=== PATIENT | male | born 1965 | race Caucasian/White ===

== ENCOUNTER 2021-07-04 09:05 | Inpatient (IN) | payer OTHER ==
[2021-07-04] MEDS: PRENATAL VITAMINS W/ FOLIC ACID TABLET (FP) PO SCH (10:28)
[2021-07-04] MEDS ORDERED: BENZOCAINE/MENTHOL (CHLORASEPTIC ) LOZENGE MM PRN (10:42)
[2021-07-04] MEDS ORDERED: METHOCARBAMOL 500 MG TABLET PO PRN (10:42)
[2021-07-04] MEDS ORDERED: ONDANSETRON *ODT* 4 MG TABLET SL PRN (10:42)
[2021-07-04] MEDS ORDERED: MAGNESIUM HYDROX 2400MG/30ML ORAL SUSPENSION 30 ML CUP PO PRN (10:42)
[2021-07-04] MEDS ORDERED: BISMUTH SUBSALICYLATE 262 MG/15 ML BTL PO PRN (10:42)
[2021-07-04] MEDS ORDERED: IBUPROFEN 400 MG TABLET (FP) PO PRN (10:42)
[2021-07-04] MEDS ORDERED: DICYCLOMINE HCL 10 MG CAPSULE PO PRN (10:42)
[2021-07-04] MEDS ORDERED: chlordiazePOXIDE HCL 25 MG CAPSULE PO PRN (10:42)
[2021-07-04] MEDS ORDERED: MAGNESIUM CITRATE 300 ML BOTTLE PO PRN (10:42)
[2021-07-04] MEDS ORDERED: NICOTINE 10 MG CARTRIDGE (INHALER) IH PRN (10:42)
[2021-07-04] MEDS ORDERED: LOPERAMIDE HCL 2 MG CAPSULE PO PRN (10:42)
[2021-07-04] MEDS ORDERED: MAG HYDROX/AL HYDROX/SIMETH 30 ML UNIT-DOSE CUP PO PRN (10:42)
[2021-07-04] MEDS ORDERED: ACETAMINOPHEN 325 MG TABLET (FP) PO PRN ×2 (10:42)
[2021-07-04 11:04] VITALS: BMI 20.5
[2021-07-04] MEDS ORDERED: PERMETHRIN 5% TOPICAL CREAM 60 GM TUBE ONE (12:24)
[2021-07-04] MEDS ORDERED: PERMETHRIN (NIX CREAM SCALP RINSE) 59 ML 1% BOTTLE TP SCH (12:30)
[2021-07-04] MEDS ORDERED: PERMETHRIN (NIX CREAM SCALP RINSE) 59 ML 1% BOTTLE TP ONE (12:30)
[2021-07-04] MEDS ORDERED: PERMETHRIN 5% TOPICAL CREAM 60 GM TUBE TP ONE (12:49)
[2021-07-04] MEDS: NICOTINE 21 MG/24 HOURS TOPICAL PATCH TD SCH (14:28)
[2021-07-04] MEDS ORDERED: chlordiazePOXIDE HCL 25 MG CAPSULE ONE (15:47)
[2021-07-04] MEDS: chlordiazePOXIDE HCL 25 MG CAPSULE PO SCH (16:01)
[2021-07-04] MEDS: hydrOXYzine PAMOATE 25 MG CAPSULE (FP) PO SCH (16:02)
[2021-07-04] MEDS ORDERED: INSULIN SLIDING SCALE (NOVOLOG) 1 VIAL SQ SCH (16:30)
[2021-07-04] MEDS ORDERED: QUEtiapine FUMARATE 25 MG TABLET PO SCH (22:00)
[2021-07-04] MEDS ORDERED: BENZTROPINE MESYLATE 1 MG TABLET PO SCH (22:00)
[2021-07-05] MEDS: chlordiazePOXIDE HCL 25 MG CAPSULE PO SCH ×6 (06:00→22:24)
[2021-07-05] MEDS: hydrOXYzine PAMOATE 25 MG CAPSULE (FP) PO SCH ×5 (07:11→22:26)
[2021-07-05] MEDS ORDERED: methaDONE HCL 10 MG TABLET PO SCH (11:30)
[2021-07-05] MEDS ORDERED: methaDONE HCL 10 MG TABLET ONE (11:56)
[2021-07-05] MEDS ORDERED: methaDONE HCL 40 MG DISPERSABLE TABLET ONE (11:59)
[2021-07-05] MEDS: PRENATAL VITAMINS W/ FOLIC ACID TABLET (FP) PO SCH (12:05)
[2021-07-05] MEDS: NICOTINE 21 MG/24 HOURS TOPICAL PATCH TD SCH (12:06)
[2021-07-05] MEDS: THIAMINE HCL 100 MG TABLET (FP) PO SCH ×2 (12:11→22:24)
[2021-07-05] MEDS: MELATONIN 5 MG TABLETS PO SCH ×2 (12:11→22:26)
[2021-07-06] MEDS ORDERED: methaDONE HCL 10 MG TABLET ONE (03:55)
[2021-07-06] MEDS ORDERED: methaDONE HCL 40 MG DISPERSABLE TABLET ONE (03:56)
[2021-07-06] MEDS: chlordiazePOXIDE HCL 25 MG CAPSULE PO SCH ×4 (05:36→23:07)
[2021-07-06] MEDS: hydrOXYzine PAMOATE 25 MG CAPSULE (FP) PO SCH ×5 (07:43→23:05)
[2021-07-06] MEDS: NICOTINE 21 MG/24 HOURS TOPICAL PATCH TD SCH (11:54)
[2021-07-06] MEDS: PRENATAL VITAMINS W/ FOLIC ACID TABLET (FP) PO SCH (11:55)
[2021-07-06] MEDS: MELATONIN 5 MG TABLETS PO SCH (23:05)
[2021-07-06] MEDS: THIAMINE HCL 100 MG TABLET (FP) PO SCH (23:05)
[2021-07-07] MEDS ORDERED: chlordiazePOXIDE HCL 10 MG CAPSULE PO PRN
[2021-07-07] MEDS ORDERED: methaDONE HCL 10 MG TABLET ONE (04:36)
[2021-07-07] MEDS ORDERED: methaDONE HCL 40 MG DISPERSABLE TABLET ONE (04:36)
[2021-07-07] MEDS ORDERED: TRIMETHOBENZAMIDE HCL 200MG/2ML INJ IM ONE (06:14)
[2021-07-07] MEDS: chlordiazePOXIDE HCL 10 MG CAPSULE PO SCH ×4 (09:17→22:53)
[2021-07-07] MEDS: hydrOXYzine PAMOATE 25 MG CAPSULE (FP) PO SCH ×5 (09:19→22:53)
[2021-07-07] MEDS: PRENATAL VITAMINS W/ FOLIC ACID TABLET (FP) PO SCH (11:28)
[2021-07-07] MEDS: NICOTINE 21 MG/24 HOURS TOPICAL PATCH TD SCH (11:28)
[2021-07-07] MEDS: THIAMINE HCL 100 MG TABLET (FP) PO SCH (22:53)
[2021-07-07] MEDS: MELATONIN 5 MG TABLETS PO SCH (22:54)
[2021-07-07 23:11] LABS: SARS-CoV-2 NAA Not Detected (Not Detected)
[2021-07-08] MEDS ORDERED: methaDONE HCL 40 MG DISPERSABLE TABLET ONE (04:10)
[2021-07-08] MEDS ORDERED: methaDONE HCL 10 MG TABLET ONE (04:10)
[2021-07-08] MEDS: chlordiazePOXIDE HCL 10 MG CAPSULE PO SCH ×2 (06:30→18:19)
[2021-07-08] MEDS: hydrOXYzine PAMOATE 25 MG CAPSULE (FP) PO SCH ×5 (06:31→23:43)
[2021-07-08] MEDS: NICOTINE 21 MG/24 HOURS TOPICAL PATCH TD SCH (10:28)
[2021-07-08] MEDS: PRENATAL VITAMINS W/ FOLIC ACID TABLET (FP) PO SCH (10:29)
[2021-07-08 11:26] LABS: HEMATOCRIT 34.9 % (35.4-49); HEMOGLOBIN 11.2 GM/dL (11.7-16.9); MCH 30.5 pg (25.7-33.7); MCHC 32.2 g/dl (32.0-35.9); MEAN CELL VOLUME 94.7 fl (80-96); MEAN PLT VOLUME 6.7 fl (7.5-11.1); PLATELET COUNT 436 10^3/uL (134-434); RBC 3.69 M/mm3 (4.00-5.60); RDW 14.2 % (11.9-15.9); WHITE BLOOD COUNT 9.8 K/mm3 (4.0-10.0)
[2021-07-08 11:50] LABS: ALBUMIN 2.4 g/dl (3.4-5.0); BLOOD UREA NITROGEN 12.6 mg/dL (7-18); CALCIUM 8.8 mg/dL (8.5-10.1)
[2021-07-08 11:53] LABS: CREATININE 0.9 mg/dL (0.55-1.3)
[2021-07-08 11:55] LABS: BILIRUBIN,TOTAL 0.4 mg/dL (0.2-1); TOT PROT 7.8 g/dl (6.4-8.2)
[2021-07-08] MEDS: MELATONIN 5 MG TABLETS PO SCH (23:43)
[2021-07-08] MEDS: THIAMINE HCL 100 MG TABLET (FP) PO SCH (23:43)
[2021-07-09] MEDS ORDERED: methaDONE HCL 10 MG TABLET ONE (04:13)
[2021-07-09] MEDS ORDERED: methaDONE HCL 40 MG DISPERSABLE TABLET ONE (04:14)
[2021-07-09] MEDS ORDERED: chlordiazePOXIDE HCL 10 MG CAPSULE PO ONE (05:00)
[2021-07-09] MEDS: hydrOXYzine PAMOATE 25 MG CAPSULE (FP) PO SCH ×4 (06:32→18:00)
[2021-07-09] MEDS: PRENATAL VITAMINS W/ FOLIC ACID TABLET (FP) PO SCH (11:00)
[2021-07-09] MEDS: NICOTINE 21 MG/24 HOURS TOPICAL PATCH TD SCH (11:00)
[2021-07-09 18:09] VITALS: BP 105/68; PULSE 75; TEMP 97.5
== END 2021-07-09 18:00 | disposition other institution (70) | DRG 773 ==
LOC: YASAS 09:05 → UNDOADMIN 15:06 → Y3N 15:06 → Y6N 07-05 10:05
PROVIDERS: ADMIT Allergy & Immunology; ATTEND Allergy & Immunology
PROC: HZ2ZZZZ Detoxification Services for Substance Abuse Treatment (ICD-10-PCS; principal; 2021-07-05)
DX: F10.230 Alcohol dependence with withdrawal, uncomplicated (principal); F11.20 Opioid dependence, uncomplicated; F14.20 Cocaine dependence, uncomplicated; F12.20 Cannabis dependence, uncomplicated; F17.210 Nicotine dependence, cigarettes, uncomplicated; F43.10 Post-traumatic stress disorder, unspecified; I10 Essential (primary) hypertension; E11.9 Type 2 diabetes mellitus without complications; L85.3 Xerosis cutis; J45.909 Unspecified asthma, uncomplicated; R11.2 Nausea with vomiting, unspecified; Z56.0 Unemployment, unspecified; Z59.00 Homelessness unspecified
CPT/HCPCS: 36415; 80053; 82962; 85027; 86780; 93005; 93010; C9803-CS; Q0162; U0003; U0005

== ENCOUNTER 2021-07-09 18:17 | Inpatient (IN) | payer OTHER ==
[2021-07-09] MEDS ORDERED: P-EPHED 60MG/TRIPROLIDI 2.5MG TABLET PO PRN (20:48)
[2021-07-09] MEDS ORDERED: guaiFENesin 200 MG/10 ML 10 ML UNIT-DOSE CUPS PO PRN (20:48)
[2021-07-09] MEDS ORDERED: MAG HYDROX/AL HYDROX/SIMETH 30 ML UNIT-DOSE CUP PO PRN (20:48)
[2021-07-09] MEDS ORDERED: LOPERAMIDE HCL 2 MG CAPSULE PO PRN (20:48)
[2021-07-09] MEDS ORDERED: MAGNESIUM CITRATE 300 ML BOTTLE PO PRN (20:48)
[2021-07-09] MEDS ORDERED: BENZOCAINE/MENTHOL (CHLORASEPTIC ) LOZENGE MM PRN (20:48)
[2021-07-09] MEDS ORDERED: MAGNESIUM HYDROX 2400MG/30ML ORAL SUSPENSION 30 ML CUP PO PRN (20:48)
[2021-07-09] MEDS: hydrOXYzine PAMOATE 25 MG CAPSULE (FP) PO PRN (22:59)
[2021-07-09] MEDS: THIAMINE HCL 100 MG TABLET (FP) PO SCH (22:59)
[2021-07-09] MEDS: ACETAMINOPHEN 325 MG TABLET (FP) PO PRN (22:59)
[2021-07-10] MEDS ORDERED: methaDONE HCL 40 MG DISPERSABLE TABLET PO SCH (07:00)
[2021-07-10] MEDS ORDERED: methaDONE HCL 40 MG DISPERSABLE TABLET ONE (07:18)
[2021-07-10] MEDS ORDERED: methaDONE HCL 10 MG TABLET ONE (07:18)
[2021-07-10] MEDS: PRENATAL VITAMINS W/ FOLIC ACID TABLET (FP) PO SCH (09:13)
[2021-07-10] MEDS ORDERED: AMMONIUM LACTATE 12% LOTION 225 GM BOTTLE TP PRN (10:02)
[2021-07-10] MEDS: THIAMINE HCL 100 MG TABLET (FP) PO SCH (21:39)
[2021-07-11] MEDS ORDERED: methaDONE HCL 40 MG DISPERSABLE TABLET ONE (03:07)
[2021-07-11] MEDS ORDERED: methaDONE HCL 10 MG TABLET ONE (03:07)
[2021-07-11] MEDS: PRENATAL VITAMINS W/ FOLIC ACID TABLET (FP) PO SCH (09:28)
[2021-07-11] MEDS: THIAMINE HCL 100 MG TABLET (FP) PO SCH (21:43)
[2021-07-12] MEDS ORDERED: methaDONE HCL 40 MG DISPERSABLE TABLET ONE (02:58)
[2021-07-12] MEDS ORDERED: methaDONE HCL 10 MG TABLET ONE (02:58)
[2021-07-12] MEDS: PRENATAL VITAMINS W/ FOLIC ACID TABLET (FP) PO SCH (10:26)
[2021-07-12] MEDS: THIAMINE HCL 100 MG TABLET (FP) PO SCH (22:30)
[2021-07-13] MEDS ORDERED: methaDONE HCL 40 MG DISPERSABLE TABLET ONE (05:45)
[2021-07-13] MEDS ORDERED: methaDONE HCL 10 MG TABLET ONE (05:45)
[2021-07-13] MEDS: PRENATAL VITAMINS W/ FOLIC ACID TABLET (FP) PO SCH (09:53)
[2021-07-13] MEDS: THIAMINE HCL 100 MG TABLET (FP) PO SCH (22:18)
[2021-07-14] MEDS: IBUPROFEN 400 MG TABLET (FP) PO PRN (02:46)
[2021-07-14] MEDS ORDERED: methaDONE HCL 10 MG TABLET ONE (03:26)
[2021-07-14] MEDS ORDERED: methaDONE HCL 40 MG DISPERSABLE TABLET ONE (03:26)
[2021-07-14] MEDS: PRENATAL VITAMINS W/ FOLIC ACID TABLET (FP) PO SCH (10:10)
[2021-07-14] MEDS: THIAMINE HCL 100 MG TABLET (FP) PO SCH (21:11)
[2021-07-15] MEDS: IBUPROFEN 400 MG TABLET (FP) PO PRN (02:25)
[2021-07-15] MEDS ORDERED: methaDONE HCL 10 MG TABLET ONE (03:25)
[2021-07-15] MEDS ORDERED: methaDONE HCL 40 MG DISPERSABLE TABLET ONE (03:25)
[2021-07-15] MEDS: PRENATAL VITAMINS W/ FOLIC ACID TABLET (FP) PO SCH (10:21)
[2021-07-15] MEDS: THIAMINE HCL 100 MG TABLET (FP) PO SCH (21:28)
[2021-07-15] MEDS: MELATONIN 5 MG TABLETS PO PRN (21:28)
[2021-07-15] MEDS: QUEtiapine FUMARATE 100 MG TABLET (FP) PO SCH (21:29)
[2021-07-16] MEDS ORDERED: methaDONE HCL 10 MG TABLET ONE (04:03)
[2021-07-16] MEDS ORDERED: methaDONE HCL 40 MG DISPERSABLE TABLET ONE (04:03)
[2021-07-16] MEDS: PRENATAL VITAMINS W/ FOLIC ACID TABLET (FP) PO SCH (09:49)
[2021-07-16] MEDS: QUEtiapine FUMARATE 100 MG TABLET (FP) PO SCH (21:30)
[2021-07-16] MEDS: THIAMINE HCL 100 MG TABLET (FP) PO SCH (21:30)
[2021-07-17] MEDS ORDERED: methaDONE HCL 10 MG TABLET ONE (02:06)
[2021-07-17] MEDS ORDERED: methaDONE HCL 40 MG DISPERSABLE TABLET ONE (02:06)
[2021-07-17] MEDS: IBUPROFEN 400 MG TABLET (FP) PO PRN ×2 (06:37→13:23)
[2021-07-17] MEDS: PRENATAL VITAMINS W/ FOLIC ACID TABLET (FP) PO SCH (09:57)
[2021-07-17] MEDS: QUEtiapine FUMARATE 100 MG TABLET (FP) PO SCH (21:20)
[2021-07-17] MEDS: THIAMINE HCL 100 MG TABLET (FP) PO SCH (21:20)
[2021-07-17] MEDS: MELATONIN 5 MG TABLETS PO PRN (21:20)
[2021-07-18] MEDS: IBUPROFEN 400 MG TABLET (FP) PO PRN (02:09)
[2021-07-18] MEDS ORDERED: methaDONE HCL 40 MG DISPERSABLE TABLET ONE (02:18)
[2021-07-18] MEDS ORDERED: methaDONE HCL 10 MG TABLET ONE (02:18)
[2021-07-18] MEDS: PRENATAL VITAMINS W/ FOLIC ACID TABLET (FP) PO SCH (11:06)
[2021-07-18] MEDS: THIAMINE HCL 100 MG TABLET (FP) PO SCH (21:38)
[2021-07-18] MEDS: MELATONIN 5 MG TABLETS PO PRN (21:38)
[2021-07-18] MEDS: QUEtiapine FUMARATE 100 MG TABLET (FP) PO SCH (21:38)
[2021-07-19] MEDS ORDERED: methaDONE HCL 40 MG DISPERSABLE TABLET ONE (03:21)
[2021-07-19] MEDS ORDERED: methaDONE HCL 10 MG TABLET ONE (03:21)
[2021-07-19] MEDS: PRENATAL VITAMINS W/ FOLIC ACID TABLET (FP) PO SCH (10:13)
[2021-07-19] MEDS: MELATONIN 5 MG TABLETS PO PRN (21:08)
[2021-07-19] MEDS: QUEtiapine FUMARATE 100 MG TABLET (FP) PO SCH (21:08)
[2021-07-19] MEDS: THIAMINE HCL 100 MG TABLET (FP) PO SCH (21:08)
[2021-07-19] MEDS: hydrOXYzine PAMOATE 25 MG CAPSULE (FP) PO PRN (21:08)
[2021-07-20] MEDS ORDERED: methaDONE HCL 40 MG DISPERSABLE TABLET ONE (03:07)
[2021-07-20] MEDS ORDERED: methaDONE HCL 10 MG TABLET ONE (03:07)
[2021-07-20] MEDS: PRENATAL VITAMINS W/ FOLIC ACID TABLET (FP) PO SCH (11:12)
[2021-07-20] MEDS: IBUPROFEN 400 MG TABLET (FP) PO PRN (11:31)
[2021-07-20] MEDS: THIAMINE HCL 100 MG TABLET (FP) PO SCH (21:19)
[2021-07-20] MEDS: MELATONIN 5 MG TABLETS PO PRN (21:19)
[2021-07-20] MEDS: QUEtiapine FUMARATE 100 MG TABLET (FP) PO SCH (21:19)
[2021-07-21] MEDS: IBUPROFEN 400 MG TABLET (FP) PO PRN ×2 (01:11→19:45)
[2021-07-21] MEDS ORDERED: methaDONE HCL 40 MG DISPERSABLE TABLET ONE (03:07)
[2021-07-21] MEDS ORDERED: methaDONE HCL 10 MG TABLET ONE (03:07)
[2021-07-21] MEDS: PRENATAL VITAMINS W/ FOLIC ACID TABLET (FP) PO SCH (09:36)
[2021-07-21] MEDS: THIAMINE HCL 100 MG TABLET (FP) PO SCH (21:17)
[2021-07-21] MEDS: QUEtiapine FUMARATE 100 MG TABLET (FP) PO SCH (21:17)
[2021-07-21] MEDS: MELATONIN 5 MG TABLETS PO PRN (21:17)
[2021-07-22] MEDS: IBUPROFEN 400 MG TABLET (FP) PO PRN ×4 (01:54→23:41)
[2021-07-22] MEDS: hydrOXYzine PAMOATE 25 MG CAPSULE (FP) PO PRN (02:40)
[2021-07-22] MEDS ORDERED: methaDONE HCL 10 MG TABLET ONE (03:20)
[2021-07-22] MEDS ORDERED: methaDONE HCL 40 MG DISPERSABLE TABLET ONE (03:21)
[2021-07-22] MEDS: PRENATAL VITAMINS W/ FOLIC ACID TABLET (FP) PO SCH (09:24)
[2021-07-22] MEDS: ACETAMINOPHEN 325 MG TABLET (FP) PO PRN (15:11)
[2021-07-22] MEDS: THIAMINE HCL 100 MG TABLET (FP) PO SCH (21:30)
[2021-07-22] MEDS: MELATONIN 5 MG TABLETS PO PRN (21:30)
[2021-07-22] MEDS: QUEtiapine FUMARATE 100 MG TABLET (FP) PO SCH (21:44)
[2021-07-23] MEDS ORDERED: methaDONE HCL 10 MG TABLET ONE (06:15)
[2021-07-23] MEDS ORDERED: methaDONE HCL 40 MG DISPERSABLE TABLET ONE (06:16)
[2021-07-23 06:38] VITALS: BP 109/70; PULSE 67; TEMP 97.1
[2021-07-23] MEDS: PRENATAL VITAMINS W/ FOLIC ACID TABLET (FP) PO SCH (09:28)
== END 2021-07-23 09:30 | disposition home or self-care (01) | DRG 772 ==
LOC: YASAS 18:17 → Y3E 18:19
PROVIDERS: ADMIT Allergy & Immunology; ATTEND Allergy & Immunology
PROC: HZ42ZZZ Group Counseling for Substance Abuse Treatment, Cognitive-Behavioral (ICD-10-PCS; principal; 2021-07-09)
DX: F10.20 Alcohol dependence, uncomplicated (principal); F11.20 Opioid dependence, uncomplicated; F14.20 Cocaine dependence, uncomplicated; F12.20 Cannabis dependence, uncomplicated; F17.210 Nicotine dependence, cigarettes, uncomplicated; F19.24 Other psychoactive substance dependence with psychoactive substance-induced mood disorder; F20.9 Schizophrenia, unspecified; F43.10 Post-traumatic stress disorder, unspecified; I10 Essential (primary) hypertension; E11.9 Type 2 diabetes mellitus without complications; J45.909 Unspecified asthma, uncomplicated; R79.89 Other specified abnormal findings of blood chemistry; Z62.810 Personal history of physical and sexual abuse in childhood; Z91.410 Personal history of adult physical and sexual abuse; Z56.0 Unemployment, unspecified; Z59.00 Homelessness unspecified; Z91.19 Patient's noncompliance with other medical treatment and regimen
CPT/HCPCS: 36415; 71045-TC-FY; 74177-TC; 80053; 82962; 83690; 83735; 84100; 85025; 93005; 93010; Q9967

== ENCOUNTER 2022-07-10 09:11 | Inpatient (IN) | payer OTHER ==
[2022-07-10 09:37] VITALS: BMI 20.7
[2022-07-10] MEDS ORDERED: ONDANSETRON *ODT* 4 MG TABLET SL PRN (10:05)
[2022-07-10] MEDS ORDERED: NALOXONE HCL (KLOXXADO) 8 MG SPRAY NS PRN (10:05)
[2022-07-10] MEDS ORDERED: LORazepam 1 MG TABLET PO PRN (10:05)
[2022-07-10] MEDS ORDERED: BENZONATATE 200 MG CAPSULE PO PRN (10:05)
[2022-07-10] MEDS ORDERED: NALOXONE HCL 0.4 MG/ML VIAL IM PRN (10:05)
[2022-07-10] MEDS ORDERED: NICOTINE 10 MG CARTRIDGE (INHALER) IH PRN (10:05)
[2022-07-10] MEDS ORDERED: hydrOXYzine PAMOATE 25 MG CAPSULE (FP) PO PRN (10:05)
[2022-07-10] MEDS ORDERED: IBUPROFEN 400 MG TABLET (FP) PO PRN (10:05)
[2022-07-10] MEDS ORDERED: POLYETHYLENE GLYCOL (HEALTHYLAX) 3350 17 GM PACKET PO PRN (10:05)
[2022-07-10] MEDS ORDERED: MAG HYDROX/AL HYDROX/SIMETH 30 ML UNIT-DOSE CUP PO PRN (10:05)
[2022-07-10] MEDS ORDERED: IBUPROFEN 600 MG TABLET (FP) PO PRN (10:05)
[2022-07-10] MEDS ORDERED: guaiFENesin 600 MG TABLET.ER (FP) PO PRN (10:05)
[2022-07-10] MEDS ORDERED: MAGNESIUM HYDROX 2400MG/30ML ORAL SUSPENSION 30 ML CUP PO PRN (10:05)
[2022-07-10] MEDS ORDERED: BENZOCAINE/MENTHOL (CHLORASEPTIC ) LOZENGE MM PRN (10:05)
[2022-07-10] MEDS ORDERED: LOPERAMIDE HCL 2 MG CAPSULE PO PRN (10:05)
[2022-07-10] MEDS ORDERED: BISMUTH SUBSALICYLATE 262 MG/15 ML BTL PO PRN (10:05)
[2022-07-10] MEDS ORDERED: METHOCARBAMOL 500 MG TABLET PO PRN (10:05)
[2022-07-10] MEDS ORDERED: DICYCLOMINE HCL 10 MG CAPSULE PO PRN (10:05)
[2022-07-10] MEDS: NICOTINE 21 MG/24 HOURS TOPICAL PATCH TD SCH (10:50)
[2022-07-10] MEDS: PRENATAL VITAMINS W/ FOLIC ACID TABLET (FP) PO SCH (10:50)
[2022-07-10] MEDS: INSULIN SLIDING SCALE (NOVOLOG) 1 VIAL SQ SCH ×2 (11:00→18:16)
[2022-07-10] MEDS ORDERED: LORazepam 2 MG TABLET ONE (11:53)
[2022-07-10] MEDS: LORazepam 2 MG TABLET PO SCH ×3 (12:04→22:54)
[2022-07-10 14:28] LABS: HEMATOCRIT 34.8 % (35.4-49); HEMOGLOBIN 11.8 GM/dL (11.7-16.9); MCH 30.7 pg (25.7-33.7); MCHC 33.9 g/dl (32.0-35.9); MEAN CELL VOLUME 90.6 fl (80-96); PLATELET COUNT 369 10^3/uL (134-434); RBC 3.84 M/mm3 (4.00-5.60); RDW 14.3 % (11.9-15.9); WHITE BLOOD COUNT 5.5 K/mm3 (4.0-10.0)
[2022-07-10 14:36] LABS: ALBUMIN 3.1 g/dl (3.4-5.0)
[2022-07-10 14:37] LABS: BLOOD UREA NITROGEN 10.2 mg/dL (7-18); CALCIUM 8.8 mg/dL (8.5-10.1)
[2022-07-10 14:40] LABS: CREATININE 0.8 mg/dL (0.55-1.3)
[2022-07-10 14:42] LABS: BILIRUBIN,TOTAL 0.3 mg/dL (0.2-1); TOT PROT 8.2 g/dl (6.4-8.2)
[2022-07-10] MEDS: MELATONIN 5 MG TABLETS PO SCH (22:54)
[2022-07-10] MEDS: THIAMINE HCL 100 MG TABLET (FP) PO SCH (22:54)
[2022-07-11] MEDS: LORazepam 2 MG TABLET PO SCH ×4 (05:46→22:24)
[2022-07-11] MEDS ORDERED: methaDONE HCL 10 MG TABLET PO SCH (06:00)
[2022-07-11] MEDS: INSULIN SLIDING SCALE (NOVOLOG) 1 VIAL SQ SCH ×3 (06:46→17:59)
[2022-07-11] MEDS: NICOTINE 21 MG/24 HOURS TOPICAL PATCH TD SCH (11:01)
[2022-07-11] MEDS: PRENATAL VITAMINS W/ FOLIC ACID TABLET (FP) PO SCH (11:02)
[2022-07-11] MEDS ORDERED: ALBUTEROL SO4 2.5/IPRATROPIUM 0.5 INH SOL 3 ML VIAL.NEB. NEB PRN (16:11)
[2022-07-11] MEDS: predniSONE 20 MG TABLET (UD) PO SCH (17:56)
[2022-07-11] MEDS: THIAMINE HCL 100 MG TABLET (FP) PO SCH (22:23)
[2022-07-11] MEDS: MELATONIN 5 MG TABLETS PO SCH (22:23)
[2022-07-12] MEDS: LORazepam 1 MG TABLET PO SCH ×4 (06:01→22:40)
[2022-07-12] MEDS: INSULIN SLIDING SCALE (NOVOLOG) 1 VIAL SQ SCH ×3 (07:30→17:35)
[2022-07-12] MEDS: PRENATAL VITAMINS W/ FOLIC ACID TABLET (FP) PO SCH (11:00)
[2022-07-12] MEDS: predniSONE 20 MG TABLET (UD) PO SCH (11:30)
[2022-07-12] MEDS: NICOTINE 21 MG/24 HOURS TOPICAL PATCH TD SCH (11:58)
[2022-07-12] MEDS: ACETAMINOPHEN 325 MG TABLET (FP) PO PRN (18:44)
[2022-07-12] MEDS: THIAMINE HCL 100 MG TABLET (FP) PO SCH (22:40)
[2022-07-12] MEDS: MELATONIN 5 MG TABLETS PO SCH (22:40)
[2022-07-13] MEDS ORDERED: LORazepam 0.5 MG TABLET PO PRN
[2022-07-13] MEDS: LORazepam 0.5 MG TABLET PO SCH ×4 (05:19→22:17)
[2022-07-13] MEDS: INSULIN SLIDING SCALE (NOVOLOG) 1 VIAL SQ SCH ×3 (06:24→16:36)
[2022-07-13] MEDS: NICOTINE 21 MG/24 HOURS TOPICAL PATCH TD SCH (10:50)
[2022-07-13] MEDS: predniSONE 20 MG TABLET (UD) PO SCH (10:52)
[2022-07-13] MEDS: PRENATAL VITAMINS W/ FOLIC ACID TABLET (FP) PO SCH (10:52)
[2022-07-13] MEDS: ACETAMINOPHEN 325 MG TABLET (FP) PO PRN (16:55)
[2022-07-13] MEDS: MELATONIN 5 MG TABLETS PO SCH (22:16)
[2022-07-13] MEDS: THIAMINE HCL 100 MG TABLET (FP) PO SCH (22:17)
[2022-07-14] MEDS ORDERED: LORazepam 0.5 MG TABLET PO ONE (05:00)
[2022-07-14] MEDS: INSULIN SLIDING SCALE (NOVOLOG) 1 VIAL SQ SCH ×2 (07:35→12:01)
[2022-07-14 09:08] VITALS: BP 106/60; PULSE 78; RESP 20; TEMP 98.8
[2022-07-14] MEDS: NICOTINE 21 MG/24 HOURS TOPICAL PATCH TD SCH (10:20)
[2022-07-14] MEDS: predniSONE 20 MG TABLET (UD) PO SCH (10:20)
[2022-07-14] MEDS: PRENATAL VITAMINS W/ FOLIC ACID TABLET (FP) PO SCH (10:20)
== END 2022-07-14 11:58 | disposition home or self-care (01) | DRG 773 ==
LOC: YASAS 09:11 → Y3N 12:47
PROVIDERS: ADMIT Allergy & Immunology; ATTEND Surgery
PROC: HZ2ZZZZ Detoxification Services for Substance Abuse Treatment (ICD-10-PCS; principal; 2022-07-10)
DX: F10.230 Alcohol dependence with withdrawal, uncomplicated (principal); F11.20 Opioid dependence, uncomplicated; F14.20 Cocaine dependence, uncomplicated; F12.20 Cannabis dependence, uncomplicated; F20.9 Schizophrenia, unspecified; I10 Essential (primary) hypertension; J45.909 Unspecified asthma, uncomplicated; E11.9 Type 2 diabetes mellitus without complications; L84 Corns and callosities; R74.8 Abnormal levels of other serum enzymes; Z87.19 Personal history of other diseases of the digestive system; Z99.89 Dependence on other enabling machines and devices
CPT/HCPCS: 36415; 80053; 82962; 85027; 86780; 87811; C9803-CS; U0003; U0005

== ENCOUNTER 2024-05-21 11:07 | Inpatient (IN) | payer OTHER ==
[2024-05-21 12:19] LABS: HEMATOCRIT 32.4 % (35.4-49); HEMOGLOBIN 10.7 GM/dL (11.7-16.9); MCH 29.2 pg (25.7-33.7); MCHC 33.1 g/dl (32.0-35.9); MEAN CELL VOLUME 88.1 fl (80-96); MEAN PLT VOLUME 6.7 fl (7.5-11.1); PLATELET COUNT 248 10^3/uL (134-434); RBC 3.67 M/mm3 (4.00-5.60); RDW 14.7 % (11.9-15.9); WHITE BLOOD COUNT 7.2 K/mm3 (4.0-10.0)
[2024-05-21 12:41] LABS: ALBUMIN 2.2 g/dl (3.4-5.0); CALCIUM 7.6 mg/dL (8.5-10.1)
[2024-05-21 12:42] LABS: BLOOD UREA NITROGEN 17.5 mg/dL (7-18)
[2024-05-21 12:45] LABS: BILIRUBIN,TOTAL 0.5 mg/dL (0.2-1); CREATININE 0.8 mg/dL (0.55-1.3)
[2024-05-21] MEDS ORDERED: PIPERACILLIN/TAZOB 4.5 GM 4.5 GM/100 ML BAG IVPB ONE (13:05)
[2024-05-21] MEDS ORDERED: VANCOMYCIN/WATER 1250 MG 1,250 MG/250 ML BAG IVPB ONE (13:05)
[2024-05-21] MEDS: PIPERACILLIN/TAZOB 4.5 GM 4.5 GM in DEXTROSE 5%-WATER 100 ML IVPB ONE (13:19)
[2024-05-21 13:31] LABS: ANISOCYTOSIS 0; HELMET CELLS 0; HOWELL-JOLLY BODIES 0; MACROCYTOSIS 0; OVALOCYTE 0; ROULEAU 0; SICKELED CELLS 0; TARGET CELLS 0; TEAR DROP CELLS 0; TOXIC GRANULATION 0
[2024-05-21] MEDS: VANCOMYCIN 1,000 MG in DEXTROSE 5%-WATER - 250 ML IVPB ONE (14:15)
[2024-05-21] MEDS ORDERED: PIPERACILLIN/TAZOB 3.375 GM 3.375 GM in DEXTROSE 5%-WATER - 50 ML IVPB SCH (19:33)
[2024-05-21] MEDS ORDERED: PIPERACILLIN/TAZOB 3.375 GM 3.375 GM/50 ML BAG IVPB ONE (20:07)
[2024-05-21] MEDS: PIPERACILLIN/TAZOB 3.375 GM 50 ML IVPB SCH (20:14)
[2024-05-21] MEDS: HEPARIN NA (PORCINE) 5,000 UNITS/ML 1ML VIAL SQ SCH (21:27)
[2024-05-21] MEDS: ACETAMINOPHEN 325 MG TABLET (FP) PO PRN (21:27)
[2024-05-21] MEDS: INSULIN ASPART SLIDING SCALE (NOVOLOG) 1 VIAL SQ SCH (21:28)
[2024-05-21] MEDS: ALBUTEROL SO4 2.5/IPRATROPIUM 0.5 INH SOL 3 ML VIAL.NEB. NEB PRN (21:49)
[2024-05-21 22:18] VITALS: BMI 18.3
[2024-05-22] MEDS ORDERED: VANCOMYCIN 1,000 MG in DEXTROSE 5%-WATER - 250 ML IVPB SCH (02:00)
[2024-05-22] MEDS: VANCOMYCIN/WATER FOR INJ (PEG) 1,000 MG/200 ML BAG IVPB SCH (02:54)
[2024-05-22] MEDS ORDERED: methaDONE HCL 10 MG TABLET PO SCH (07:00)
[2024-05-22 10:22] LABS: HEMATOCRIT 31.2 % (35.4-49); HEMOGLOBIN 10.4 GM/dL (11.7-16.9); MCH 29.2 pg (25.7-33.7); MCHC 33.2 g/dl (32.0-35.9); MEAN CELL VOLUME 87.9 fl (80-96); PLATELET COUNT 311 10^3/uL (134-434); RBC 3.55 M/mm3 (4.00-5.60); RDW 14.6 % (11.9-15.9); WHITE BLOOD COUNT 5.8 K/mm3 (4.0-10.0)
[2024-05-22 10:32] LABS: POTASSIUM 3.6 mmol/L (3.5-5.1)
[2024-05-22 10:36] LABS: ALBUMIN 2.1 g/dl (3.4-5.0); CALCIUM 8.2 mg/dL (8.5-10.1); MAGNESIUM 2.4 mg/dL (1.8-2.4)
[2024-05-22 10:38] LABS: CREATININE 0.8 mg/dL (0.55-1.3); PHOSPHOROUS 2.3 mg/dL (2.5-4.9)
[2024-05-22 10:40] LABS: BILIRUBIN,TOTAL 0.5 mg/dL (0.2-1); TOT PROT 6.9 g/dl (6.4-8.2)
[2024-05-22] MEDS: NAPH,MB-DB/K PH,MBDB POWDER PACKET PO ONE (14:26)
[2024-05-22] MEDS: IBUPROFEN 400 MG TABLET (FP) PO PRN (20:02)
[2024-05-23] MEDS: ONDANSETRON 4 MG/2 ML VIAL IVPUSH PRN (11:03)
[2024-05-23 11:25] LABS: BASO % 0.2 % (0-2.0); EOS % 1.9 % (0-4.5); HEMATOCRIT 35.1 % (35.4-49); HEMOGLOBIN 11.6 GM/dL (11.7-16.9); LYMPH % 5.6 % (8-40); MCH 29.5 pg (25.7-33.7); MCHC 33.1 g/dl (32.0-35.9); MEAN CELL VOLUME 89.2 fl (80-96); MONO % 7.6 % (3.8-10.2); NEUT % 84.7 % (42.8-82.8); PLATELET COUNT 455 10^3/uL (134-434); RBC 3.94 M/mm3 (4.00-5.60); RDW 14.9 % (11.9-15.9); WHITE BLOOD COUNT 6.2 K/mm3 (4.0-10.0)
[2024-05-23] MEDS: predniSONE 20 MG TABLET (UD) PO SCH (11:25)
[2024-05-23 11:45] LABS: POTASSIUM 4.9 mmol/L (3.5-5.1)
[2024-05-23 11:48] LABS: CALCIUM 8.6 mg/dL (8.5-10.1)
[2024-05-23 11:51] LABS: PHOSPHOROUS 2.6 mg/dL (2.5-4.9)
[2024-05-23 11:52] LABS: CREATININE 0.7 mg/dL (0.55-1.3)
[2024-05-23] MEDS ORDERED: ALBUTEROL SO4 0.083% IH SOL 2.5 MG/3 ML VIAL.NEB. NEB PRN (16:29)
[2024-05-23] MEDS: ALBUTEROL SO4 2.5/IPRATROPIUM 0.5 INH SOL 3 ML VIAL.NEB. NEB SCH (20:46)
[2024-05-23] MEDS: AMMONIUM LACTATE 12% LOTION 225 GM BOTTLE TP SCH (21:19)
[2024-05-24] MEDS: PIPERACILLIN/TAZOB 3.375 GM 50 ML IVPB SCH (09:05)
[2024-05-24 09:51] LABS: BASO % 0.2 % (0-2.0); EOS % 0.4 % (0-4.5); HEMATOCRIT 33.4 % (35.4-49); LYMPH % 14.4 % (8-40); MCHC 33.1 g/dl (32.0-35.9); MEAN CELL VOLUME 87.7 fl (80-96); MEAN PLT VOLUME 6.7 fl (7.5-11.1); PLATELET COUNT 521 10^3/uL (134-434); RDW 14.8 % (11.9-15.9); WHITE BLOOD COUNT 6.6 K/mm3 (4.0-10.0)
[2024-05-24 11:01] LABS: POTASSIUM 4.9 mmol/L (3.5-5.1)
[2024-05-24 11:02] LABS: CALCIUM 8.1 mg/dL (8.5-10.1)
[2024-05-24 11:03] LABS: BLOOD UREA NITROGEN 16.3 mg/dL (7-18); MAGNESIUM 1.7 mg/dL (1.8-2.4)
[2024-05-24 11:06] LABS: CREATININE 0.6 mg/dL (0.55-1.3); PHOSPHOROUS 3.6 mg/dL (2.5-4.9)
[2024-05-24] MEDS: MAGNESIUM OXIDE 400 MG TABLET (FP) PO ONE (17:00)
[2024-05-25 09:46] LABS: HEMATOCRIT 36.1 % (35.4-49); HEMOGLOBIN 11.9 GM/dL (11.7-16.9); MCH 28.8 pg (25.7-33.7); MEAN CELL VOLUME 87.1 fl (80-96); MEAN PLT VOLUME 6.6 fl (7.5-11.1); PLATELET COUNT 658 10^3/uL (134-434); RBC 4.14 M/mm3 (4.00-5.60); RDW 15.2 % (11.9-15.9); WHITE BLOOD COUNT 8.1 K/mm3 (4.0-10.0)
[2024-05-25 10:22] LABS: CALCIUM 8.9 mg/dL (8.5-10.1)
[2024-05-25 10:26] LABS: CREATININE 0.8 mg/dL (0.55-1.3)
[2024-05-25 12:45] LABS: HIV INTERPRETATION NEGATIVE (NEGATIVE)
[2024-05-25] MEDS: MELATONIN 5 MG TABLETS PO PRN (21:44)
[2024-05-25] MEDS: BUDESONIDE/FORMETEROL FUMARATE 160/4.5 mcg INHALER IH SCH (21:48)
[2024-05-26 04:02] VITALS: RESP 18
[2024-05-26 08:54] LABS: HEMATOCRIT 36.4 % (35.4-49); HEMOGLOBIN 11.8 GM/dL (11.7-16.9); MCH 28.8 pg (25.7-33.7); MCHC 32.3 g/dl (32.0-35.9); MEAN PLT VOLUME 6.5 fl (7.5-11.1); PLATELET COUNT 658 10^3/uL (134-434); RBC 4.09 M/mm3 (4.00-5.60); WHITE BLOOD COUNT 7.6 K/mm3 (4.0-10.0)
[2024-05-26 09:17] LABS: POTASSIUM 5.1 mmol/L (3.5-5.1)
[2024-05-26 09:25] LABS: BLOOD UREA NITROGEN 21.3 mg/dL (7-18)
[2024-05-26 09:26] LABS: CALCIUM 8.6 mg/dL (8.5-10.1)
[2024-05-26 09:28] LABS: CREATININE 0.7 mg/dL (0.55-1.3)
[2024-05-26 14:47] VITALS: BP 90/59; PULSE 78; TEMP 98.1
[2024-05-26] MEDS ORDERED: AMOX TR/POT CLAV 875MG/125MG TABLETS (FP) PO SCH (17:30)
== END 2024-05-26 15:15 | disposition other institution (70) | DRG 139 ==
LOC: JER 11:07 → JERBED 17:47 → J6S 21:18
PROVIDERS: ADMIT Student in an Organized Health Care Education/Training Program; ATTEND Internal Medicine
DX: J15.4 Pneumonia due to other streptococci (principal); I10 Essential (primary) hypertension; E11.9 Type 2 diabetes mellitus without complications; F11.20 Opioid dependence, uncomplicated; F19.10 Other psychoactive substance abuse, uncomplicated; D64.9 Anemia, unspecified; E43 Unspecified severe protein-calorie malnutrition; Z68.1 Body mass index [BMI] 19.9 or less, adult; F20.9 Schizophrenia, unspecified; F43.10 Post-traumatic stress disorder, unspecified; J45.901 Unspecified asthma with (acute) exacerbation
CPT/HCPCS: 0241U-QW; 36415; 71045-TC-FY; 71260-TC; 80048; 80053; 82962; 83036; 83735; 83880; 84100; 84484; 85025; 85027; 86359; 86360; 86480; 87040; 87081; 87389; 87899; 93005; 93010; 94640; 99285-25; J1644; Q9967

== ENCOUNTER 2024-05-26 15:49 | Inpatient (IN) | payer OTHER ==
[2024-05-26 16:35] VITALS: BMI 20.2
[2024-05-26] MEDS ORDERED: ACETAMINOPHEN 325 MG TABLET (FP) PO PRN (16:49)
[2024-05-26] MEDS ORDERED: POLYETHYLENE GLYCOL (HEALTHYLAX) 3350 17 GM PACKET PO PRN (16:49)
[2024-05-26] MEDS ORDERED: MAGNESIUM HYDROX 2400MG/30ML ORAL SUSPENSION 30 ML CUP PO PRN (16:49)
[2024-05-26] MEDS ORDERED: LOPERAMIDE HCL 2 MG CAPSULE PO PRN (16:49)
[2024-05-26] MEDS ORDERED: guaiFENesin 600 MG TABLET.ER (FP) PO PRN (16:49)
[2024-05-26] MEDS ORDERED: IBUPROFEN 400 MG TABLET (FP) PO PRN (16:49)
[2024-05-26] MEDS ORDERED: BENZOCAINE/MENTHOL (CHLORASEPTIC ) LOZENGE MM PRN (16:49)
[2024-05-26] MEDS ORDERED: MAG HYDROX/AL HYDROX/SIMETH 30 ML UNIT-DOSE CUP PO PRN (16:49)
[2024-05-26] MEDS ORDERED: hydrOXYzine PAMOATE 25 MG CAPSULE (FP) PO PRN (16:49)
[2024-05-26] MEDS ORDERED: IBUPROFEN 600 MG TABLET (FP) PO PRN (16:49)
[2024-05-26] MEDS ORDERED: BENZONATATE 200 MG CAPSULE PO PRN (16:49)
[2024-05-26] MEDS ORDERED: NALOXONE (NARCAN) HCL 4 MG/0.1 ML SPRAY NS PRN (16:49)
[2024-05-26] MEDS: INSULIN ASPART SLIDING SCALE (NOVOLOG) 1 VIAL SQ SCH (18:08)
[2024-05-26 18:46] VITALS: BP 99/64; PULSE 78; RESP 18; TEMP 97.4
[2024-05-26 20:45] LABS: PH,URINE 5.5 (5.0-8.0); URINE APPEARANCE CLEAR; URINE BILIRUBIN NEGATIVE (NEGATIVE); URINE COLOR YELLOW; URINE GLUCOSE (UA) NEGATIVE (NEGATIVE); URINE KETONE TRACE (NEGATIVE); URINE LEUK ESTERASE NEGATIVE (NEGATIVE); URINE NITRITE NEGATIVE (NEGATIVE); URINE PROTEIN NEGATIVE (NEGATIVE); URINE UROBILINOGEN 0.2 mg/dL (0.2-1.0)
[2024-05-26] MEDS: MELATONIN 5 MG TABLETS PO SCH (21:39)
[2024-05-26] MEDS: THIAMINE 100 MG TABLET PO SCH (21:39)
[2024-05-27] MEDS: AMOX TR/POT CLAV 875MG/125MG TABLETS (FP) PO SCH (07:52)
[2024-05-27] MEDS ORDERED: methaDONE HCL 10 MG TABLET PO SCH (08:30)
[2024-05-27] MEDS ORDERED: PRENATAL VITAMINS W/ FOLIC ACID TABLET (FP) PO SCH (10:00)
== END 2024-05-27 10:42 | disposition left against medical advice (07) | DRG 770 ==
LOC: YASAS 15:49 → Y3E 17:39
PROVIDERS: ADMIT Psychiatry & Neurology Pain Medicine; ATTEND Allergy & Immunology
PROC: HZ42ZZZ Group Counseling for Substance Abuse Treatment, Cognitive-Behavioral (ICD-10-PCS; principal; 2024-05-26)
DX: F10.20 Alcohol dependence, uncomplicated (principal); F11.20 Opioid dependence, uncomplicated; F17.210 Nicotine dependence, cigarettes, uncomplicated; F20.9 Schizophrenia, unspecified; F19.24 Other psychoactive substance dependence with psychoactive substance-induced mood disorder; F43.10 Post-traumatic stress disorder, unspecified; G47.00 Insomnia, unspecified; I10 Essential (primary) hypertension; J45.909 Unspecified asthma, uncomplicated; E11.9 Type 2 diabetes mellitus without complications; Z79.4 Long term (current) use of insulin; Z87.01 Personal history of pneumonia (recurrent); Z99.89 Dependence on other enabling machines and devices; Z59.01 Sheltered homelessness
CPT/HCPCS: 80305; 80307; 81003; 82962; 87811; 93005; 93010